=== PATIENT | female | born 2000 | race Caucasian/White ===

== ENCOUNTER 2022-06-01 15:09 | Emergency (ER) | payer OTHER ==
[~2022-06-01] VITALS: Ht 154.9 cm; Wt 35.0 kg
[2022-06-01 15:42] VITALS: BP 99/58
[2022-06-01] MEDS ORDERED: BENZ1LOZ73 MT (20:23)
== END 2022-06-01 21:17 | disposition home or self-care (01) ==
LOC: ER 15:09
DX: J02.9 Acute pharyngitis, unspecified (principal); E11.9 Type 2 diabetes mellitus without complications
CPT/HCPCS: 99283